=== PATIENT | male | born 1960 | race Caucasian/White ===

== ENCOUNTER 2017-07-30 14:13 | Emergency (ER) | payer OTHER ==
[~2017-07-30] VITALS: Ht 180.3 cm; Wt 135.0 kg
[2017-07-30 14:13] VITALS: BP 181/91; PULSE 93; RESP 18; TEMP 98; O2SAT 96
[~2017-07-30 14:13] MED LIST: LISI-363 PO; METH18 PO
--- NOTE | 2017-07-30 14:52 | PD ---
HPI Chief Complaint: Edema Time Seen by Provider: 14:46 Travel History International Travel<30 days: No Contact w/Intl Traveler<30days: No Traveled to known affect area: No History of Present Illness HPI 56-year-old male patient of the [place] presents the emergency Department with tender hieu-sized raised lesion on the underside of the left anterior tongue which he noticed just this morning. Patient denies smoking history or chewing tobacco. She states she has had a broken sharp tooth on the left lower incisors and tricuspid for the past couple of months. He states he has not been able to get to the dentist to grind and down. He is unsure how long the lesion has been present. Patient is currently taking a speech class at [employer], which she feels may have aggravated it so he noticed it today. An is 2/ 10. He denies any other symptoms. He has no known drug allergies. [facility] Social History Alcohol Use: Yes Tobacco Use: No Substance Use: No Allergies-Medications (Allergen,Severity, Reaction): Coded Allergies: No Known Allergies (Unverified , 08/16/13) Reported Meds & Prescriptions Reported Meds & Active Scripts Active Reported Concerta (Methylphenidate HCl) 18 Mg Tabcr 18 Mg PO DAILY Lisinopril 20 Mg Tab 20 Mg PO DAILY Review of Systems Except as stated in HPI: all other systems reviewed are Neg General / Constitutional: No: Fever Eyes: No: Visual changes HENT: No: Headaches Cardiovascular: No: Chest Pain or Discomfort Respiratory: No: Shortness of Breath Gastrointestinal: No: Abdominal Pain Genitourinary: No: Dysuria Musculoskeletal: No: Pain Skin: Positive Lesions, No Rash Neurologic: No: Weakness Psychiatric: No: Depression Endocrine: No: Polydipsia Hematologic/Lymphatic: No: Easy Bruising Physical Exam Narrative GENERAL: Patient appears in no acute distress. SKIN: Warm and dry. Normal color. Normal turgor. HEAD: Atraumatic. Normocephalic. EYES: Pupils equal and round. No scleral icterus. No injection or drainage. ENT: No nasal bleeding or discharge. Mucous membranes pink and moist. Patient has a nickel-sized raised round whitish lesion to the left anterior underside of the left tongue. There are no other significant findings in the pharynx or buccal membranes. No lymphadenitis. NECK: Trachea midline. Supple nontender without lymphadenopathy. CARDIOVASCULAR: Regular rate and rhythm. RESPIRATORY: No accessory muscle use. Clear to auscultation. Breath sounds equal bilaterally. MUSCULOSKELETAL: Extremities without clubbing, cyanosis, or edema. No obvious deformities. NEUROLOGICAL: Awake and alert. No obvious cranial nerve deficits. Motor grossly within normal limits. Five out of 5 muscle strength in the arms and legs. Normal speech. PSYCHIATRIC: Appropriate mood and affect; insight and judgment normal. Data Data Last Documented VS Vital Signs Date Time Temp Pulse Resp B/P (MAP) Pulse Ox O2 Delivery O2 Flow Rate FiO2 07/30/17 14:13 98.0 93 18 181/91 (121) 96 Room Air MDM Medical Decision Making Medical Screen Exam Complete: Yes Emergency Medical Condition: Yes Differential Diagnosis Painful tongue. Suspicious lesion on the tongue. Possible malignant tumor. Narrative Course Patient is medically stable at time of exam. Patient is referred to Dr. Calderon, the ENT production engineer today. Further workup here in emergency department is not warranted. Diagnosis Primary Impression: Lesion of tongue Referrals: Eugenio Calderon MD call for appointment Patient Instructions: General Instructions Additional Instructions: Patient is medically stable at time of exam. Patient is referred to Dr. Calderon, the ENT production engineer today. Further workup here in emergency department is not warranted. Med/Other Pt SpecificInfo: No Meds Exist/No RX given Disposition: 01 DISCHARGE HOME Condition: Stable Chau Betancourt Jul 30, 2017 14:52
--- NOTE | 2017-07-30 14:52 | PD ---
HPI Chief Complaint: Edema Time Seen by Provider: 14:46 Travel History International Travel<30 days: No Contact w/Intl Traveler<30days: No Traveled to known affect area: No History of Present Illness HPI 56-year-old male patient of the [place] presents the emergency Department with tender hieu-sized raised lesion on the underside of the left anterior tongue which he noticed just this morning. Patient denies smoking history or chewing tobacco. She states she has had a broken sharp tooth on the left lower incisors and tricuspid for the past couple of months. He states he has not been able to get to the dentist to grind and down. He is unsure how long the lesion has been present. Patient is currently taking a speech class at [employer], which she feels may have aggravated it so he noticed it today. An is 2/ 10. He denies any other symptoms. He has no known drug allergies. [facility] Social History Alcohol Use: Yes Tobacco Use: No Substance Use: No Allergies-Medications (Allergen,Severity, Reaction): Coded Allergies: No Known Allergies (Unverified , 08/16/13) Reported Meds & Prescriptions Reported Meds & Active Scripts Active Reported Concerta (Methylphenidate HCl) 18 Mg Tabcr 18 Mg PO DAILY Lisinopril 20 Mg Tab 20 Mg PO DAILY Review of Systems Except as stated in HPI: all other systems reviewed are Neg General / Constitutional: No: Fever Eyes: No: Visual changes HENT: No: Headaches Cardiovascular: No: Chest Pain or Discomfort Respiratory: No: Shortness of Breath Gastrointestinal: No: Abdominal Pain Genitourinary: No: Dysuria Musculoskeletal: No: Pain Skin: Positive Lesions, No Rash Neurologic: No: Weakness Psychiatric: No: Depression Endocrine: No: Polydipsia Hematologic/Lymphatic: No: Easy Bruising Physical Exam Narrative GENERAL: Patient appears in no acute distress. SKIN: Warm and dry. Normal color. Normal turgor. HEAD: Atraumatic. Normocephalic. EYES: Pupils equal and round. No scleral icterus. No injection or drainage. ENT: No nasal bleeding or discharge. Mucous membranes pink and moist. Patient has a nickel-sized raised round whitish lesion to the left anterior underside of the left tongue. There are no other significant findings in the pharynx or buccal membranes. No lymphadenitis. NECK: Trachea midline. Supple nontender without lymphadenopathy. CARDIOVASCULAR: Regular rate and rhythm. RESPIRATORY: No accessory muscle use. Clear to auscultation. Breath sounds equal bilaterally. MUSCULOSKELETAL: Extremities without clubbing, cyanosis, or edema. No obvious deformities. NEUROLOGICAL: Awake and alert. No obvious cranial nerve deficits. Motor grossly within normal limits. Five out of 5 muscle strength in the arms and legs. Normal speech. PSYCHIATRIC: Appropriate mood and affect; insight and judgment normal. Data Data Last Documented VS Vital Signs Date Time Temp Pulse Resp B/P (MAP) Pulse Ox O2 Delivery O2 Flow Rate FiO2 07/30/17 14:13 98.0 93 18 181/91 (121) 96 Room Air MDM Medical Decision Making Medical Screen Exam Complete: Yes Emergency Medical Condition: Yes Differential Diagnosis Painful tongue. Suspicious lesion on the tongue. Possible malignant tumor. Narrative Course Patient is medically stable at time of exam. Patient is referred to Dr. Calderon, the ENT sound installation worker today. Further workup here in emergency department is not warranted. Diagnosis Primary Impression: Lesion of tongue Referrals: Eugenio Calderon MD call for appointment Patient Instructions: General Instructions Additional Instructions: Patient is medically stable at time of exam. Patient is referred to Dr. Calderon, the ENT sound installation worker today. Further workup here in emergency department is not warranted. Med/Other Pt SpecificInfo: No Meds Exist/No RX given Disposition: 01 DISCHARGE HOME Condition: Stable Chau Betancourt Jul 30, 2017 14:52
--- NOTE | 2017-07-30 14:52 | PD ---
HPI Chief Complaint: Edema Time Seen by Provider: 14:46 Travel History International Travel<30 days: No Contact w/Intl Traveler<30days: No Traveled to known affect area: No History of Present Illness HPI 56-year-old male patient of the [place] presents the emergency Department with tender hieu-sized raised lesion on the underside of the left anterior tongue which he noticed just this morning. Patient denies smoking history or chewing tobacco. She states she has had a broken sharp tooth on the left lower incisors and tricuspid for the past couple of months. He states he has not been able to get to the dentist to grind and down. He is unsure how long the lesion has been present. Patient is currently taking a speech class at [employer], which she feels may have aggravated it so he noticed it today. An is 2/ 10. He denies any other symptoms. He has no known drug allergies. [facility] Social History Alcohol Use: Yes Tobacco Use: No Substance Use: No Allergies-Medications (Allergen,Severity, Reaction): Coded Allergies: No Known Allergies (Unverified , 08/16/13) Reported Meds & Prescriptions Reported Meds & Active Scripts Active Reported Concerta (Methylphenidate HCl) 18 Mg Tabcr 18 Mg PO DAILY Lisinopril 20 Mg Tab 20 Mg PO DAILY Review of Systems Except as stated in HPI: all other systems reviewed are Neg General / Constitutional: No: Fever Eyes: No: Visual changes HENT: No: Headaches Cardiovascular: No: Chest Pain or Discomfort Respiratory: No: Shortness of Breath Gastrointestinal: No: Abdominal Pain Genitourinary: No: Dysuria Musculoskeletal: No: Pain Skin: Positive Lesions, No Rash Neurologic: No: Weakness Psychiatric: No: Depression Endocrine: No: Polydipsia Hematologic/Lymphatic: No: Easy Bruising Physical Exam Narrative GENERAL: Patient appears in no acute distress. SKIN: Warm and dry. Normal color. Normal turgor. HEAD: Atraumatic. Normocephalic. EYES: Pupils equal and round. No scleral icterus. No injection or drainage. ENT: No nasal bleeding or discharge. Mucous membranes pink and moist. Patient has a nickel-sized raised round whitish lesion to the left anterior underside of the left tongue. There are no other significant findings in the pharynx or buccal membranes. No lymphadenitis. NECK: Trachea midline. Supple nontender without lymphadenopathy. CARDIOVASCULAR: Regular rate and rhythm. RESPIRATORY: No accessory muscle use. Clear to auscultation. Breath sounds equal bilaterally. MUSCULOSKELETAL: Extremities without clubbing, cyanosis, or edema. No obvious deformities. NEUROLOGICAL: Awake and alert. No obvious cranial nerve deficits. Motor grossly within normal limits. Five out of 5 muscle strength in the arms and legs. Normal speech. PSYCHIATRIC: Appropriate mood and affect; insight and judgment normal. Data Data Last Documented VS Vital Signs Date Time Temp Pulse Resp B/P (MAP) Pulse Ox O2 Delivery O2 Flow Rate FiO2 07/30/17 14:13 98.0 93 18 181/91 (121) 96 Room Air MDM Medical Decision Making Medical Screen Exam Complete: Yes Emergency Medical Condition: Yes Differential Diagnosis Painful tongue. Suspicious lesion on the tongue. Possible malignant tumor. Narrative Course Patient is medically stable at time of exam. Patient is referred to Dr. Calderon, the ENT [employer] chip [employer]razzo worker today. Further workup here in emergency department is not warranted. Diagnosis Primary Impression: Lesion of tongue Referrals: Eugenio Calderon MD call for appointment Patient Instructions: General Instructions Additional Instructions: Patient is medically stable at time of exam. Patient is referred to Dr. Calderon, the ENT [employer] worker today. Further workup here in emergency department is not warranted. Med/Other Pt SpecificInfo: No Meds Exist/No RX given Disposition: 01 DISCHARGE HOME Condition: Stable Chau Betancourt Jul 30, 2017 14:52
[2017-07-30] MEDS ORDERED: MELO-1 PO (15:14)
[2017-07-30] MEDS ORDERED: METF1000 PO (15:14)
== END 2017-07-30 15:20 | disposition home or self-care (01) ==
LOC: NEPK 14:13
DX: K14.9 Disease of tongue, unspecified (principal)
CPT/HCPCS: 99282